=== PATIENT | male | born 1990 | race Hispanic/Latino ===

== ENCOUNTER 2016-11-14 20:09 | Emergency (ER) | payer OTHER ==
[~2016-11-14] VITALS: Ht 167.6 cm; Wt 84.8 kg
[~2016-11-14 20:09] MED LIST: CIPRO500 MG PO; FLAGYL500 MG PO; NAPROXEN500 MG PO; NORCO 5-325 TA1 EACH PO; ZYRTEC10 MG PO
== END 2016-11-15 01:36 | disposition home or self-care (01) ==
LOC: ED 20:09
DX: R10.9 Unspecified abdominal pain (principal); R10.813 Right lower quadrant abdominal tenderness; Z87.442 Personal history of urinary calculi; Z90.49 Acquired absence of other specified parts of digestive tract
CPT/HCPCS: 74177; 80053; 81001; 83690; 85025; 99284; Q9967

== ENCOUNTER 2017-04-26 19:33 | Emergency (ER) | payer OTHER ==
[~2017-04-26] VITALS: Ht 167.6 cm; Wt 86.2 kg
== END 2017-04-26 23:38 | disposition short-term general hospital (02) ==
LOC: ED 19:33
DX: G43.809 Other migraine, not intractable, without status migrainosus (principal); Z87.442 Personal history of urinary calculi; Z90.49 Acquired absence of other specified parts of digestive tract
CPT/HCPCS: 70450; 70496; 70498; 80053; 85025; 85610; 85730; 96374; 96375; 99285; J1200; J2765; Q9967

== ENCOUNTER 2017-09-02 20:22 | Emergency (ER) | payer OTHER ==
[~2017-09-02] VITALS: Ht 167.6 cm; Wt 86.2 kg
[2017-09-02] MEDS ORDERED: NORPRAMIN25 MG PO (20:34)
[2017-09-02] MEDS ORDERED: NAPROXEN500 MG PO (20:34)
[2017-09-02] MEDS ORDERED: LIPITOR40 MG PO (20:34)
[2017-09-02] MEDS ORDERED: LISINOPRIL10 MG PO (20:34)
[2017-09-02] MEDS ORDERED: TRIAMCINOLONE A15 G1 TOP (20:35)
== END 2017-09-02 22:17 | disposition home or self-care (01) ==
LOC: ED 20:22
DX: R20.8 Other disturbances of skin sensation (principal); Z79.899 Other long term (current) drug therapy
CPT/HCPCS: 70450; 80048; 81001; 85025; 99284